=== PATIENT | female | born 1965 | race Caucasian/White ===

== ENCOUNTER 2020-01-27 22:23 | Emergency (ER) | payer OTHER, SELFPAY ==
--- NOTE | 2020-01-27 22:27 | ED.BACK ---
HPI - Back Pain/Injury General Chief Complaint: Back Pain/Injury Stated Complaint: back pain Time Seen by Provider: 01/27/20 22:26 Source: patient and family Mode of arrival: Ambulatory Limitations: no limitations History of Present Illness HPI Narrative: 54-year-old female daily smoker with chronic pain presents with her daughter and a chief complaint of left-sided midthoracic pain for the past 2 days. She states that her pain started when her gave her a big bear hug and she now has pain and spasming. Her pain is worse with motion and improves with rest. She denies any numbness, tingling or weakness. She denies any loss of control of bowel or bladder. She denies any footdrop. She denies any chest pain or shortness of breath. She denies any cough. Patient has been taking her own oxycodone, motrin, and methocarbamol MD Complaint: back pain and back injury Onset (ago): day(s) Duration: constant Similar Symptoms Previously: Yes Location: left upper back and left lower back Severity: moderate Radiation: none Relieving factors: sitting upright Exacerbating factors: none Associated symptoms: denies other symptoms Related Data Previous Rx's Medication Instructions Recorded diazepam [Valium] 5 mg PO BID-QID PRN #10 tab 01/27/20 ketorolac 10 mg PO Q6H PRN #14 tab 01/27/20 lidocaine [Lidoderm] 1 patch TOP DAILY #15 each 01/27/20 Allergies Allergy/AdvReac Type Severity Reaction Status Date / Time No Known Drug Allergies Allergy Verified 01/27/20 22:44 Review of Systems Constitutional Constitutional: Denies chills, Denies fatigue, Denies fever(s), Denies frequent falls, Denies lethargy and Denies weakness Eyes Eyes: Denies change in vision, Denies eye discharge, Denies irritation and Denies loss of vision ENT Ears, Nose, Mouth, and Throat: Denies change in voice, Denies dizziness, Denies neck pain, Denies sore throat and Denies throat swelling Cardiovascular Cardiovascular: Denies chest pain, Denies irregular heart rhythm, Denies lightheadedness, Denies palpitations, Denies dyspnea, Denies dyspnea on exertion and Denies orthopnea Respiratory Respiratory: Denies cough, Denies dyspnea, Denies dyspnea on exertion and Denies wheezing Gastrointestinal Gastrointestinal: Denies abdominal pain, Denies change in bowel habits, Denies diarrhea, Denies nausea and Denies vomiting Musculoskeletal Musculoskeletal: Reports back pain, Denies neck pain and Denies numbness Integumentary/Breasts Skin/Breast: Denies pruritus, Denies erythema, Denies rash and Denies wounds Neurologic Neurologic: Denies behavioral changes, Denies confusion, Denies dizziness, Denies frequent falls, Denies loss of vision, Denies numbness and Denies weakness Psychiatric Psychiatric: Denies anxiety, Denies behavioral changes, Denies confusion, Denies depression, Denies homicidal ideation and Denies suicidal ideation Endocrine Endocrine: Denies fatigue, Denies flushing and Denies palpitations Hematologic/Lymphatic Hematologic/Lymphatic: Denies easy bruising Allergic/Immunologic Allergic/Immunologic: Denies urticaria, Denies throat swelling and Denies wheezing Patient History Social History Smoking Status: Current every day smoker Smoking Status: Current every day smoker Exam Narrative Exam Narrative: GEN: AOx3 and in mild distress EYES: Pupils are equal, round, and reactive to light and accommodation. Extraoccular muscles are intact bilaterally. There is no subconjunctival hemorrhage or exudate. CHEST: Lungs are clear to auscultation bilaterally and free of wheezes, rales, or rhonchi. Heart rate is regular rhythm, there are no murmurs, clicks, rubs, or gallops. There is no chest wall tenderness. ABD: Abdomen is soft and nontender. There is no guarding or rebound. Bowel sounds are normal in all 4 quadrants. There is no mass or organomegaly. EXT: Full painless ROM of all extremities with no loss of sensation or strength. SKIN: Warm, pink, and dry. No erythema or rash BACK: rag cutting machine tender but free of any obvious external abnormalities. Patient exam notes decreased range of motion and muscle spasm, but no CVA tenderness, or vertebral point tenderness. There are no symptoms of cauda equina such as saddle anesthesia, and decreased reflexes, decreased sensation or strength. Initial Vital Signs Initial Vital Signs: Vital Signs Temperature 98 F 01/27/20 22:35 Pulse Rate 117 H 01/27/20 22:35 Respiratory Rate 17 01/27/20 22:35 Blood Pressure 165/68 H 01/27/20 22:35 Pulse Oximetry 97 01/27/20 22:35 Course Course Course Narrative: Multiple etiologies of back pain considered including; Epidural abscess, cauda equina, mass occupying lesion, and other considered Orders Ordered: Discontinued Medications Diazepam (Valium) 5 mg PO NOW ONE Stop: 01/27/20 22:54 Last Admin: 01/27/20 23:04 Dose: 5 mg Documented by: GUNNAR Ketorolac Tromethamine (Toradol) 60 mg IM NOW ONE Stop: 01/27/20 22:54 Last Admin: 01/27/20 23:04 Dose: 60 mg Documented by: GUNNAR Lidocaine (Lidoderm) 1 each TOP NOW ONE Stop: 01/27/20 22:54 Last Admin: 01/27/20 23:05 Dose: 1 each Documented by: GUNNAR Vital Signs Vital signs: Vital Signs - 8 hr 01/27/20 22:35 01/27/20 23:14 Temperature 98 F Pulse Rate 117 H 105 H Respiratory Rate 17 18 Blood Pressure 165/68 H 142/75 H Pulse Oximetry 97 95 Discharge Plan Departure Patient Disposition: Home Clinical Impression: Strain of lumbar region Discharge Date/Time: 01/27/20 23:26 Instructions: DI for Back Spasm Activity Restrictions/Additional Instructions: *You have been diagnosed with [back pain with spasm] *What to do: *Take medications as directed: *Follow up with your primary care provider in 2-3 days, call for an appointment. Let them know you were seen in the Emergency Department and that we ask that you be seen in follow up *Return to ER if you should have any new, worsening or concerning symptoms, Prescriptions: New ketorolac 10 mg tablet 10 mg PO Q6H PRN (Reason: pain) Qty: 14 RF: 0 lidocaine [Lidoderm] 5 % adhesive patch,medicated 1 patch TOP DAILY Qty: 15 RF: 0 diazepam [Valium] 5 mg tablet 5 mg PO BID-QID PRN (Reason: muscle spasm) Qty: 10 RF: 0
[2020-01-27 22:35] VITALS: BP 165/68; PULSE 117; RESP 17; TEMP 36.6; O2SAT 97; BMI 46.5
[2020-01-27] MEDS: diazePAM 5 MG TABLET PO (23:04)
[2020-01-27] MEDS: KETOROLAC 60 MG/2 ML VIAL IM (23:04)
[2020-01-27] MEDS: LIDOCAINE PATCH 1 EACH ADH..PATCH TOP (23:05)
[2020-01-27 23:14] VITALS: BP 142/75; PULSE 105; RESP 18; O2SAT 95
== END 2020-01-27 23:26 | disposition home or self-care (01) ==
PROVIDERS: Emergency Provider Emergency Medicine
DX: S39.012A Strain of muscle, fascia and tendon of lower back, initial encounter (principal)
CPT/HCPCS: 96372; 99283; J1885

== ENCOUNTER 2020-01-28 06:25 | Emergency (ER) | payer OTHER, SELFPAY ==
[2020-01-28 06:45] VITALS: BP 136/91; PULSE 109; RESP 19; TEMP 36.3; O2SAT 98; BMI 45.1
--- NOTE | 2020-01-28 07:01 | ED_ITS ---
HPI - Back Pain/Injury General Chief Complaint: Back Pain/Injury Stated Complaint: Still in pain from 5 hours ago Time Seen by Provider: 01/28/20 06:29 Source: patient Mode of arrival: Ambulatory Limitations: no limitations History of Present Illness HPI Narrative: Patient is a 54-year-old female complaining of back pain. It is been ongoing for the last 2 days. She says she got a hug from her who often pop her back which she did he said initially it felt fine however as time went on it progressively got worse. She then did it inclined table she says that really made it worse. She was seen evaluated here last night she had a shot of Toradol Lidoderm Valium. She was previously on methocarbamol. She has not picked up any of her new medications she also has not taken anything since her emergency department visit last evening. She denies any numbness tingling or weakness. She is ambulatory. She says she has been unable to lay down in fact lying down makes everything were she has been standing for 36 hours unable to get comfortable. MD Complaint: back pain Onset (ago): day(s) (2) Duration: constant Similar Symptoms Previously: No Location: thoracic spine Severity: moderate Quality: sharp Radiation: none Relieving factors: none Exacerbating factors: movement Related Data Previous Rx's Medication Instructions Recorded diazepam [Valium] 5 mg PO BID-QID PRN #10 tab 01/27/20 ketorolac 10 mg PO Q6H PRN #14 tab 01/27/20 lidocaine [Lidoderm] 1 patch TOP DAILY #15 each 01/27/20 Allergies Allergy/AdvReac Type Severity Reaction Status Date / Time No Known Drug Allergies Allergy Verified 01/27/20 22:44 Review of Systems Review of Systems Narrative: GENERAL: Denies chills, fatigue, malaise, fever, sweats, travel HEENT: Denies sinus pain, ear pain, sore throat, difficulty swallowing, neck pain RESPIRATORY: Denies dyspnea, cough, wheezing, hemoptysis, sputum. CARDIOVASCULAR: Denies chest pain, palpitations, orthopnea, edema GASTROINTESTINAL: Denies nausea, vomiting, abdominal pain, diarrhea, constipation, melena. : Denies dysuria, frequency, incontinence, hematuria, urinary retention, flank pain. MUSCULOSKELETAL: See HPI SKIN: No rash, no erythema, no pruritus NEUROLOGIC: Denies weakness, dizziness, headache, numbness, change in speech, confusion PSYCHIATRIC: No concerning psychosocial issues. 12 point review of systems is negative except for those stated above and HPI Patient History Medical History Hypertension (Acute) Social History Smoking Status: Current every day smoker Smoking Status: Current every day smoker alcohol intake frequency: 0-2 drinks per day Substance Use Type: does not use Exam Initial Vital Signs Initial Vital Signs: Vital Signs Temperature 97.3 F L 01/28/20 06:45 Pulse Rate 109 H 01/28/20 06:45 Respiratory Rate 19 01/28/20 06:45 Blood Pressure 136/91 H 01/28/20 06:45 Pulse Oximetry 98 01/28/20 06:45 GENERAL: Overweight female bending forward well pushes on back and in no acute distress. HEENT: Head atraumatic,EOMI, pupils reactive, face symmetric, moist mucous membranes CARDIOVASCULAR: Regular rate and rhythm without murmurs, rubs or gallops. RESPIRATORY: Breath sounds equal bilaterally, no wheezes rales or rhonchi. BACK: No midline tenderness. She is tender in the paraspinal area on the left : No CVA tenderness EXTREMITIES: Normal range of motion, no clubbing or edema. Neurovascularly intact NEUROLOGICAL: Alert and oriented x4.Normal gait and speech. Cranial nerves II through XII grossly intact. SKIN: Warm, dry, no laceration, no petechiae, no rashes or lesions. Course Orders Ordered: ED Orders 01/28/20 07:25 XR thoracic spine 3V Stat 01/28/20 07:45 Urinalysis and Microscopic Stat Urine Culture Stat 01/28/20 09:05 Complete Blood Count AUTO DIFF Stat Comprehensive Metabolic Panel Stat 01/28/20 09:49 CT abdomen pelvis w con Stat Discontinued Medications Hydromorphone HCl (Dilaudid) 0.5 mg IV NOW ONE Stop: 01/28/20 08:35 Last Admin: 01/28/20 09:24 Dose: 0.5 mg Documented by: KIKE Morphine Sulfate (Morphine) 4 mg SUBCUT NOW ONE Stop: 01/28/20 07:26 Last Admin: 01/28/20 07:49 Dose: 4 mg Documented by: NADINE Vital Signs Vital signs: Vital Signs - 8 hr 01/28/20 06:45 01/28/20 09:36 01/28/20 10:35 Temperature 97.3 F L 98.2 F Pulse Rate 109 H 82 101 H Respiratory Rate 19 18 20 Blood Pressure 136/91 H 109/70 114/72 Pulse Oximetry 98 94 97 MDM - Back Pain/Injury Lab Data Attestation: I reviewed the patient's lab results. Result diagrams: 01/28/20 09:05 01/28/20 09:05 Labs: Lab Results 01/28/20 01/28/20 01/28/20 Range/Units 07:45 09:05 09:05 WBC 9.4 (4.5-11.0) X10^3/uL RBC 4.08 (4.0-5.2) X10^6/uL Hgb 13.0 (12.0-16.0) g/dL Hct 38.1 (36-46) % MCV 93.5 (80-100) fL MCH 32.0 (26-34) PG MCHC 34.2 (30-36) % RDW 13.5 (11.6-14.8) % Plt Count 259 (150-400) X10^3/uL Neut % (Auto) 67.7 (50-75) % Lymph % (Auto) 23.2 L (25-40) % [place] % (Auto) 5.1 (3-14) % Eos % (Auto) 3.2 (2-4) % Baso % (Auto) 0.8 (0-2) % Neut # (Auto) 6400 (3648-6469) /uL Lymph # (Auto) 2200 (6850-7830) /uL [place] # (Auto) 500 (0-900) /uL Eos # (Auto) 300 (0-450) /uL Baso # (Auto) 100 (0-100) /uL Sodium 136 L (137-145) mmol/L Potassium 4.5 (3.4-5.1) mmol/L Chloride 103 (98-107) mmol/L Carbon Dioxide 25 (22-32) mmol/L BUN 23 H (7-17) mg/dL Creatinine 1.03 (0.52-1.04) mg/dL Estimated GFR 56.3 L (>60) mL/min BUN/Creatinine Ratio 22.3 H (6-22) Glucose 108 H (70-100) mg/dL Calcium 10.5 H (8.4-10.2) mg/dL Total Bilirubin 0.5 (0.2-1.3) mg/dL AST 36 (14-36) IU/L ALT 32 (<35) IU/L Alkaline Phosphatase 98 (38-126) U/L Total Protein 8.0 (6.3-8.2) g/dL Albumin 4.7 (3.5-5.0) g/dL Globulin 3.3 (1.7-4.1) g/dL Albumin/Globulin Ratio 1.4 (1.0-2.8) Urine Color Yellow Urine Appearance Clear Urine pH 5.0 (4.5-8.0) Ur Specific [place] <=1.005 (1.000-1.035) Urine Protein Negative (Negative) Urine Glucose (UA) Negative (Negative) g/dL Urine Ketones Negative (NEGATIVE) Urine Occult Blood Trace-intact (Negative) Urine Nitrate Negative (Negative) Urine Bilirubin Negative (NEGATIVE) Urine Urobilinogen 0.2 (0.2) E.U./dL Ur Leukocyte Esterase Trace H (NEGATIVE) Urine RBC 0-1/hpf (0-5/HPF) Urine WBC 1-5/hpf (0-5/HPF) Ur Squamous Epith Cells 1-5 /hpf (0-5/HPF) Urine Bacteria Few (2-10) H (None) Ur Culture Indicated? Specimen cultured Imaging Data Thoracic x-ray: Radiologist's Impression: PROCEDURE: XR THORACIC SPINE 3V INDICATIONS: pain TECHNIQUE: 3 views of the thoracic spine were acquired. COMPARISON: None. FINDINGS: Bones: No fractures or dislocations. No suspicious bony lesions. Only 11 pairs of ribs are noted, and appear intact where visualized. Degenerative changes are seen, with scattered levels of mild disc space narrowing and associated endplate irregularity and osteophyte formation. Mild levoconvex th oracolumbar scoliotic curvature is seen. Soft tissues: No paravertebral stripe thickening. IMPRESSION: Degenerative changes, without an acute abnormality seen by plain film. 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 Levoconvex scoliotic curvature. If it would be helpful for clinical management decision making, please consider a dedicated thoracic spine MRI for further evaluation (assuming that there is no contraindication). Dictated by: Harry Herrera M.D. on 01/28/2020 at 7:28 CT scan - abdomen/pelvis: Radiologist's Impression: PROCEDURE: CT ABDOMEN PELVIS W CON INDICATIONS: severe left thoracic pain TECHNIQUE: After the administration of intravenous contrast, 5 mm thick sections acquired from the diaphragm to the symphysis. 5 mm coronal and sagittal reformats were acquired. For radiation dose reduction, the following was used: automated exposure control, adjustment of mA and/or kV according to patient size. COMPARISON: None. FINDINGS: Image quality: Excellent. ABDOMEN: Lung bases: Lung bases are clear. Heart size is normal. Solid organs: Liver is normal in size and enhancement. Gallbladder within normal limits. Biliary system is non dilated. Pancreas enhances normally. Spleen is normal in size and enhancement. No adrenal nodules. Kidneys demonstrate normal size and enhancement, without hydronephrosis. Peritoneum and bowel: Bowel loops demonstrate normal wall thickness and caliber. No free fluid or air. Nodes and vessels: No retroperitoneal or mesenteric adenopathy by size criteria. Aorta and inferior vena cava are normal in size. Miscellaneous: There is a ventral abdominal wall hernia containing a few loops of bowel with no evidence of strangulation. PELVIS: Genitourinary: Bladder wall thickness is normal. Miscellaneous: No inguinal hernias or adenopathy. Bones: No suspicious bony lesions. No vertebral body compression fractures. Probable moderate to severe spinal canal stenosis at L4-L5 and L3-L4 with at least [id number] neural foraminal narrowing at these levels also. Correlate for any corresponding radicular symptoms. An outpatient MRI of the lumbar spine would be beneficial in this scenario. IMPRESSION: No finding to explain symptoms. Dictated by: Kobi Brothers M.D. on 01/28/2020 at 9:56 Approved by: Kobi Brothers M.D. on 01/28/2020 at 10:0 MDM Narrative Medical decision making narrative: The patient has minimal relief with morphine she says it just makes her tired she has been unable to sit down even still. At this time will do blood work and CT she is tearful and quite uncomfortable. Patient is still uncomfortable however blood work and CT are negative it does show some spinal stenosis which may be causing her pain. She has already been given prescriptions for medications that she needs to picker feeder. I recommend that she follow-up with her PCP and she may need further outpatient testing I discussed all findings with the patient and , Education has been performed regarding treatment plan, diagnosis, warning signs and symptoms and all concerns have been addressed. Verbally agree with and understood all of the above. Discharge Plan Departure Patient Disposition: Home Clinical Impression: Muscle spasm Discharge Date/Time: 01/28/20 10:36 Instructions: DI for Muscle Strain Activity Restrictions/Additional Instructions: *You have been diagnosed with muscle spasm *What to do: Recommend heating pad and light stretching. At this time no sign of bladder infection x-ray is negative. If this continues me you may require other imaging such as an MRI however this is not indicated today. Please picker feeder your prescriptions that you were prescribed last night and take him as directed *Continue to take medications as directed *Follow up with your primary care provider in 2-3 days *Return to ER if you should have changes in bowel or bladder habits, numbness, tingling, weakness, increased pain or any new, worsening or concerning symptoms Prescriptions: No Action ketorolac 10 mg tablet 10 mg PO Q6H PRN (Reason: pain) Qty: 14 RF: 0 lidocaine [Lidoderm] 5 % adhesive patch,medicated 1 patch TOP DAILY Qty: 15 RF: 0 diazepam [Valium] 5 mg tablet 5 mg PO BID-QID PRN (Reason: muscle spasm) Qty: 10 RF: 0
--- NOTE | 2020-01-28 07:25 | DI.RAD.S_ITS ---
PROCEDURE: XR THORACIC SPINE 3V INDICATIONS: pain TECHNIQUE: 3 views of the thoracic spine were acquired. COMPARISON: None. FINDINGS: Bones: No fractures or dislocations. No suspicious bony lesions. Only 11 pairs of ribs are noted, and appear intact where visualized. Degenerative changes are seen, with scattered levels of mild disc space narrowing and associated endplate irregularity and osteophyte formation. Mild levoconvex thoracolumbar scoliotic curvature is seen. Soft tissues: No paravertebral stripe thickening. IMPRESSION: Degenerative changes, without an acute abnormality seen by plain film. 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 Levoconvex scoliotic curvature. If it would be helpful for clinical management decision making, please consider a dedicated thoracic spine MRI for further evaluation (assuming that there is no contraindication). Dictated by: Harry Herrera M.D. on 01/28/2020 at 7:28 Approved by: Harry Herrera M.D. on 01/28/2020 at 7:31
[2020-01-28] MEDS: MORPHINE 4 MG/ML INJ SUBCUT (07:49)
[2020-01-28 07:51] LABS: Appearance Urine UA CLEAR; Bilirubin Urine UA NEGATIVE (NEGATIVE); Color Urine UA YELLOW; Glucose Urine UA NEGATIVE (Negative); Ketones Urine UA NEGATIVE (NEGATIVE); Leukocyte Esterase Urine UA TRACE (NEGATIVE); Nitrite Urine UA NEGATIVE (Negative); Occult Blood Urine UA TRACE-INTACT (Negative); Protein Urine UA NEGATIVE (Negative); Specific Gravity Urine UA <=1.005 (1.000-1.035); Urobilinogen Urine UA 0.2 E.U./dL (0.2)
[2020-01-28 08:05] LABS: RBC Urine 0-1/HPF (0-5/HPF); WBC Urine 1-5/HPF (0-5/HPF)
[2020-01-28 08:06] LABS: Bacteria Urine Few (2-10); Culture Indicated Urine Specimen Cultured; Squamous Epithelial Cell Urine 1-5 /HPF (0-5/HPF)
[2020-01-28 09:13] LABS: Add Manual Diff / Slide Review NO; Basophils Absolute Auto 100 /uL (0-100); Basophils Percent Auto 0.8 % (0-2); Eosinophils Absolute Auto 300 /uL (0-450); Eosinophils Percent Auto 3.2 % (2-4); Hematocrit 38.1 % (36-46); Lymphocytes Absolute Auto 2200 /uL (1100-4500); Lymphocytes Percent Auto 23.2 % (25-40); Mean Corpuscular HGB Conc 34.2 % (30-36); Mean Corpuscular Volume 93.5 fL (80-100); Monocytes Absolute Auto 500 /uL (0-900); Monocytes Percent Auto 5.1 % (3-14); Neutrophils Absolute Auto 6400 /uL (1500-7000); Neutrophils Percent Auto 67.7 % (50-75); Platelet Count 259 X10^3/uL (150-400); Red Blood Cell Count 4.08 X10^6/uL (4.0-5.2); Red Cell Distribution Width 13.5 % (11.6-14.8); White Blood Cell Count 9.4 X10^3/uL (4.5-11.0)
[2020-01-28 09:24] LABS: Alanine Aminotransferase 32 IU/L (<35); Albumin 4.7 g/dL (3.5-5.0); Albumin Globulin Ratio 1.4 (1.0-2.8); Alkaline Phosphatase 98 U/L (38-126); Aspartate Aminotransferase 36 IU/L (14-36); BUN Creatinine Ratio 22.3 (6-22); Bilirubin Total 0.5 mg/dL (0.2-1.3); Blood Urea Nitrogen 23 mg/dL (7-17); Calcium 10.5 mg/dL (8.4-10.2); Carbon Dioxide 25 mmol/L (22-32); Chloride 103 mmol/L (98-107); Estimated Glomerular Filt Rate 56.3 mL/min (>60); Globulin 3.3 g/dL (1.7-4.1); Glucose 108 mg/dL (70-100); HEMOLYSIS < 15 (0-50); Potassium 4.5 mmol/L (3.4-5.1); Sodium 136 mmol/L (137-145)
[2020-01-28] MEDS: HYDROMORPHONE 0.5 MG INJ IV (09:24)
[2020-01-28 09:36] VITALS: BP 109/70; PULSE 82; RESP 18; O2SAT 94
--- NOTE | 2020-01-28 09:49 | DI.CT.S_ITS ---
PROCEDURE: CT ABDOMEN PELVIS W CON INDICATIONS: severe left thoracic pain TECHNIQUE: After the administration of intravenous contrast, 5 mm thick sections acquired from the diaphragm to the symphysis. 5 mm coronal and sagittal reformats were acquired. For radiation dose reduction, the following was used: automated exposure control, adjustment of mA and/or kV according to patient size. COMPARISON: None. FINDINGS: Image quality: Excellent. ABDOMEN: Lung bases: Lung bases are clear. Heart size is normal. Solid organs: Liver is normal in size and enhancement. Gallbladder within normal limits. Biliary system is non dilated. Pancreas enhances normally. Spleen is normal in size and enhancement. No adrenal nodules. Kidneys demonstrate normal size and enhancement, without hydronephrosis. Peritoneum and bowel: Bowel loops demonstrate normal wall thickness and caliber. No free fluid or air. Nodes and vessels: No retroperitoneal or mesenteric adenopathy by size criteria. Aorta and inferior vena cava are normal in size. Miscellaneous: There is a ventral abdominal wall hernia containing a few loops of bowel with no evidence of strangulation. PELVIS: Genitourinary: Bladder wall thickness is normal. Miscellaneous: No inguinal hernias or adenopathy. Bones: No suspicious bony lesions. No vertebral body compression fractures. Probable moderate to severe spinal canal stenosis at L4-L5 and L3-L4 with at least [id number] neural foraminal narrowing at these levels also. Correlate for any corresponding radicular symptoms. An outpatient MRI of the lumbar spine would be beneficial in this scenario. IMPRESSION: No finding to explain symptoms. Dictated by: Kobi Brothers M.D. on 01/28/2020 at 9:56 Approved by: Kobi Brothers M.D. on 01/28/2020 at 10:04
[2020-01-28 10:35] VITALS: BP 114/72; PULSE 101; RESP 20; TEMP 36.8; O2SAT 97
== END 2020-01-28 10:36 | disposition home or self-care (01) ==
PROVIDERS: Emergency Provider Emergency Medicine
DX: M62.830 Muscle spasm of back (principal); I10 Essential (primary) hypertension
CPT/HCPCS: 36415; 72072; 74177; 80053; 81001; 85025; 87077; 87086; 87186; 96372; 96374; 99284; J1170; J2270; Q9967